=== PATIENT | male | born 1995 | race Hispanic/Latino ===

== ENCOUNTER 2021-04-15 14:16 | Emergency (ER) | payer OTHER, SELFPAY ==
[2021-04-15 15:11] VITALS: BP 143/86; PULSE 65; RESP 20; TEMP 36.5; O2SAT 98; BMI 37.6
--- NOTE | 2021-04-15 15:15 | PC.NURSE ---
denies loss of bowel or bladder.
--- NOTE | 2021-04-15 17:38 | ED.BACK ---
HPI - Back Pain/Injury General Chief Complaint: Back Pain/Injury Stated Complaint: threw his back out Time Seen by Provider: 04/15/21 17:37 Source: patient Limitations: no limitations History of Present Illness HPI Narrative: Otherwise healthy 26-year-old gentleman was walking into his gym last night around 7:00 p.m. and felt a slight twitch and muscle tightening in his low back. He describes no specific injury, no trauma he has no history of IV drug use or recent spinal procedures. He has never had similar symptoms. He complains of no fevers, cough, vomiting, diarrhea. He notes that he has not had difficulty with voiding or stooling. He is having difficulty walking purely because of pain but does not report muscle weakness. Related Data Previous Rx's Medication Instructions Recorded oxycodone-acetaminophen 1 tab PO Q6H PRN #14 tab 04/15/21 tizanidine 4 mg PO BEDTIME PRN #10 cap 04/15/21 Allergies Allergy/AdvReac Type Severity Reaction Status Date / Time No Known Drug Allergies Allergy Verified 04/15/21 18:37 Review of Systems Review of Systems Narrative: Remainder of complete review of systems is otherwise unremarkable except for that included in the HPI. Patient History Social History Smoking Status: Former smoker Smoking Status: Former smoker alcohol intake frequency: 0-2 drinks per day Substance Use Type: does not use Exam Narrative Exam Narrative: General: Alert appropriate in no acute distress Respiratory: Able to speak in full sentences, no obvious respiratory distress Skin: No obvious rashes, warm and dry. No skin changes over the area of tenderness midline L4-5 Neurologic: Grossly intact no obvious asymmetries or abnormalities. No perineal numbness. Reflexes are 3+ bilaterally at patellas. 2+ bilaterally ankle jerks. No lower extremity paresthesias Psych: appropriate insight and affect, cooperative Initial Vital Signs Initial Vital Signs: Vital Signs Temperature 97.7 F 04/15/21 15:11 Pulse Rate 65 04/15/21 15:11 Respiratory Rate 20 04/15/21 15:11 Blood Pressure 143/86 H 04/15/21 15:11 Pulse Oximetry 98 04/15/21 15:11 Course Orders Ordered: Discontinued Medications Ketorolac Tromethamine (Ketorolac 30 Mg/Ml Vial) 30 mg IM NOW ONE Stop: 04/15/21 17:50 Last Admin: 04/15/21 18:03 Dose: 30 mg Documented by: DELVIN Oxycodone/Acetaminophen (Oxycodone/Acetaminophen 5/325 Tablet) 1 tab PO NOW ONE Stop: 04/15/21 17:50 Last Admin: 04/15/21 18:02 Dose: 1 tab Documented by: DELVIN Oxycodone/Acetaminophen (Oxycodone/Apap 5/325 Prepack) 1 bottle MISC SEEINSTR ONE Stop: 04/15/21 17:54 Last Admin: 04/15/21 18:03 Dose: 1 bottle Documented by: DELVIN Vital Signs Vital signs: Vital Signs - 8 hr 04/15/21 15:11 04/15/21 18:19 Temperature 97.7 F Pulse Rate 65 58 L Respiratory Rate 20 Blood Pressure 143/86 H 136/89 Pulse Oximetry 98 99 MDM - Back Pain/Injury MDM Narrative Medical decision making narrative: 26-year-old gentleman with acute back pain consistent with lumbar strain. He has no red flags that would indicate epidural abscess, tumor, trauma or other concerns of with necessitate imaging at this time. He responded nicely to a shot of Toradol and an oral dose of Percocet. He is safe for home discharge Discharge Plan Departure Patient Disposition: Home Clinical Impression: Strain of lumbar region Qualifiers: Encounter type: initial encounter Qualified Code(s): S39.012A - Strain of muscle, fascia and tendon of lower back, initial encounter Instructions: DI for Low Back Pain Activity Restrictions/Additional Instructions: Thank you for coming in today You have fairly classic low back pain. There is no evidence of an epidural abscess, fractures, cauda equina syndrome or other severe threatening diagnoses. The pain is definitely going to be treatable. It is always worse in the 1st 2 days after your injury and then will get better. Using 400 mg of ibuprofen (2 [id number] pills) and 1 Tylenol every 6 hours can be very helpful in controlling pain. For severe pain 400 mg of ibuprofen and 1 Percocet. At night if you need additional help with muscle spasm you can add tizanidine, a muscle relaxer. I would recommend being off work completely for 2 days and then seeing how limited you are after that. Please talk to your primary care provider about a referral to physical therapy to prevent recurrent back pain issues If you have worsening pain by Friday, fevers, inability to actually walk or numbness (not just due to pain), inability to pee or develop new symptoms it would be appropriate to return to the ER for further evaluation Prescriptions: New tizanidine 4 mg capsule 4 mg PO BEDTIME PRN (Reason: muscle spasticity) Qty: 10 RF: 0 oxycodone-acetaminophen 5-325 mg tablet 1 tab PO Q6H PRN (Reason: pain) Qty: 14 RF: 0 Stand Alone Forms: Work Release Note
[2021-04-15] MEDS: OXYCODONE/ACETAMINOPHEN 5/325 TABLET 1 TAB PO (18:02)
[2021-04-15] MEDS: KETOROLAC 30 MG/ML VIAL IM (18:03)
[2021-04-15] MEDS: OXYCODONE/APAP 5/325 PREPACK 1 BOTTLE MISC (18:03)
[2021-04-15 18:19] VITALS: BP 136/89; PULSE 58; O2SAT 99
== END 2021-04-15 19:12 | disposition home or self-care (01) ==
PROVIDERS: Emergency Provider Emergency Medicine
DX: S39.012A Strain of muscle, fascia and tendon of lower back, initial encounter (principal)
CPT/HCPCS: 96372; 99283; J1885

== ENCOUNTER 2021-10-01 10:16 | Emergency (ER) | payer OTHER, SELFPAY ==
[2021-10-01 10:29] VITALS: PULSE 63; RESP 17; TEMP 36.4; O2SAT 99; BMI 37.6
--- NOTE | 2021-10-01 11:03 | DI.MRI.S_ITS ---
PROCEDURE: MR LUMBAR SPINE WO CON INDICATIONS: Low back pain, possible for cauda equina syndrome TECHNIQUE: Noncontrast sagittal T1 spin echo and T2 fast echo, sagittal STIR, axial T1 and T2 fast spin echo through the lumbar spine. In cases with scoliosis, additional coronal T2 fast spin echo may be performed. COMPARISON: None. FINDINGS: Image quality: Excellent. Alignment and Curvature: There is normal bony alignment. Bone Marrow: Marrow is of normal overall signal. No acute vertebral body compression fractures. Spinal Cord: Conus medullaris terminates at the L1 level. Visualized cord demonstrates normal signal and size. No evidence of cord or conus compression. Paraspinous Soft Tissues: No paravertebral masses. T12-L1: Normal appearance. L1-L2: Normal appearance. L2-L3: Normal appearance. L3-L4: Disc space narrowing and circumferential disc bulge present with hypertrophic facet joints resulting in effacement of the left lateral recess and moderate central stenosis. Mild left foraminal stenosis present. No right foraminal stenosis. L4-L5: Disc space narrowing and circumferential disc bulge is present as well as a superimposed central disc protrusion measuring 4 mm in thickness resulting in moderate central stenosis. Mild bilateral foraminal stenosis present. L5-S1: Disc space narrowing and circumferential disc bulge present with central high-intensity zone reflecting annular fissure or tear. No central stenosis. No right foraminal stenosis. Mild left foraminal stenosis. IMPRESSION: 1. No evidence of cord or conus compression. 2. Multilevel degenerative disc disease and arthropathy results in varying degrees of central and foraminal stenosis including moderate central stenosis and left lateral recess effacement at L3-4, and moderate central stenosis at L4-5. Approved by: Babar Colbert M.D. on 10/01/2021 at 13:50
[2021-10-01 12:46] LABS: Add Manual Diff / Slide Review NO; Basophils Absolute Auto 0 /uL (0-100); Basophils Percent Auto 0.4 % (0-2); Eosinophils Absolute Auto 100 /uL (0-450); Eosinophils Percent Auto 0.9 % (2-4); Hematocrit 50.8 % (41-53); Hemoglobin 17.3 g/dL (13.5-17.5); Lymphocytes Absolute Auto 2300 /uL (1100-4500); Lymphocytes Percent Auto 36.1 % (25-40); Mean Corpuscular HGB Conc 34.1 % (30-36); Mean Corpuscular Hemoglobin 30.4 PG (26-34); Mean Corpuscular Volume 89.4 fL (80-100); Monocytes Absolute Auto 500 /uL (0-900); Monocytes Percent Auto 7.3 % (3-14); Neutrophils Absolute Auto 3500 /uL (1500-7000); Neutrophils Percent Auto 55.3 % (50-75); Platelet Count 217 X10^3/uL (150-400); Red Blood Cell Count 5.68 X10^6/uL (4.5-5.9); White Blood Cell Count 6.4 X10^3/uL (4.5-11.0)
--- NOTE | 2021-10-01 12:50 | ED.BACK ---
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 Patient states that he 1st experienced lower back pain in April 2021 which brought him to the ED, which subsequently resolved. He does not recall any specific trauma or event that caused his original back pain. Patient's back pain recurred starting yesterday, pain starts in the right lower back, radiating down the back of his right leg all the way to the ankle. Patient states that he also experienced 30 minutes of numbness, tingling starting from his right side genital area down the front of his right thigh. Patient denies any perianal numbness, urinary hesitancy, urinary incontinence, stool incontinence. Patient denies any drug use, IVDU. Patient has not had any imaging other than x-rays done in April 2021. Patient was seen at the [facility], sent to the ED for further evaluation today. Patient denies fever, chills, chest pain, shortness of breath, cough, nausea, vomiting, abdominal pain, dysuria, lightheadedness, dizziness, syncope. Related Data Home Medications Medication Instructions Recorded Confirmed acetaminophen 325 mg capsule 650 mg PO Q6H PRN 10/01/21 10/01/21 (Tylenol) Allergies Allergy/AdvReac Type Severity Reaction Status Date / Time No Known Drug Allergies Allergy Verified 10/01/21 10:36 Review of Systems <Meaghan Coello PA-C - Last Filed: 10/01/21 16:01> Review of Systems ROS Unobtainable: All systems reviewed & are unremarkable except as noted in HPI and below Constitutional Constitutional: Denies chills, Denies fatigue, Denies fever(s), Denies frequent falls, Denies lethargy and Denies weakness Eyes Eyes: Denies change in vision, Denies eye discharge, Denies irritation and Denies loss of vision ENT Ears, Nose, Mouth, and Throat: Denies change in voice, Denies dizziness, Denies neck pain, Denies sore throat and Denies throat swelling Cardiovascular Cardiovascular: Denies chest pain, Denies irregular heart rhythm, Denies lightheadedness, Denies palpitations, Denies dyspnea, Denies dyspnea on exertion and Denies orthopnea Respiratory Respiratory: Denies cough, Denies dyspnea, Denies dyspnea on exertion and Denies wheezing Gastrointestinal Gastrointestinal: Denies abdominal pain, Denies change in bowel habits, Denies fecal incontinence, Denies diarrhea, Denies nausea and Denies vomiting Genitourinary Genitourinary: Denies hematuria, Denies difficulty urinating, Denies flank pain, Denies urinary hesitancy, Denies urinary incontinence and Denies urinary urgency Musculoskeletal Musculoskeletal: Reports back pain, Denies muscle weakness, Denies neck pain, Reports numbness, Reports radiating pain into limb (R leg) and Reports tingling Integumentary/Breasts Skin/Breast: Denies pruritus, Denies erythema, Denies rash and Denies wounds Neurologic Neurologic: Denies behavioral changes, Denies confusion, Denies dizziness, Denies frequent falls, Denies loss of vision, Reports numbness, Reports tingling and Denies weakness Psychiatric Psychiatric: Denies anxiety, Denies behavioral changes, Denies confusion, Denies depression, Denies homicidal ideation and Denies suicidal ideation Endocrine Endocrine: Denies fatigue, Denies flushing and Denies palpitations Hematologic/Lymphatic Hematologic/Lymphatic: Denies easy bruising Allergic/Immunologic Allergic/Immunologic: Denies urticaria, Denies throat swelling and Denies wheezing Patient History <Meaghan Coello PA-C - Last Filed: 10/01/21 16:01> Social History Smoking Status: Former smoker Smoking Status: Former smoker alcohol intake frequency: 0-2 drinks per day Substance Use Type: does not use Exam <Meaghan Coello PA-C - Last Filed: 10/01/21 16:01> Initial Vital Signs Initial Vital Signs: Vital Signs Temperature 97.5 F L 10/01/21 10:29 Pulse Rate 63 10/01/21 10:29 Respiratory Rate 17 10/01/21 10:29 Pulse Oximetry 99 10/01/21 10:29 Const General: cooperative and healthy appearing [facility] Head: normal to inspection Eyes General: appearance normal, both eyes and all related structures Neck Neck: normal visual inspection and No midline deformity Chest Chest: normal inspection of the chest Resp Effort & Inspection: normal respiratory effort Auscultation: clear to auscultation bilaterally Cardio Rate: regular rate Rhythm: regular rhythm GI Inspection: normal to inspection Rectal Exam: visual inspection normal and normal sphincter tone Back/Spine/Pelvis Back: normal to inspection, No back tenderness, No CVA tenderness and No ecchymosis Cervical Spine: No cervical spinal tenderness Thoracic/Lumbar Spine: thoracic and lumbar spine normal to inspection, thoraco-lumbar ROM normal, No thoracic spinal tenderness, No lumbar spinal tenderness and straight leg raise positive (R leg) Skin General: no rashes or lesions noted Neuro General: patient alert, patient awake and patient oriented x3 Cranial Nerves: CN's II-XI intact bilaterally Other: PERRLA. CN 1 through 12 intact bilaterally. Strength and sensation intact. Gait normal. Normal dorsiflexion and extension of bilateral big toes. Extrem General: normal to inspection <Dada Booker DO - Last Filed: 10/01/21 17:16> Initial Vital Signs Initial Vital Signs: Vital Signs Temperature 97.5 F L 10/01/21 10:29 Pulse Rate 63 10/01/21 10:29 Respiratory Rate 17 10/01/21 10:29 Pulse Oximetry 99 10/01/21 10:29 Course <Meaghan Coello PA-C - Last Filed: 10/01/21 16:01> Course Course Narrative: MRI with no evidence of spinal emergency such as cord compression, cauda equina. MRI does show bulging discs in the L4-L5 and L5-S1 regions, which are likely the cause of the patient's symptoms. Patient's pain improved with the medications. Patient neurologically intact on re-examine. Patient denies any numbness, tingling, weakness. Will discharge patient with ED return precautions and PCP follow-up, recommendation for physical therapy. Orders Ordered: ED Orders 10/01/21 11:03 MR lumbar spine wo con Stat 10/01/21 12:30 Basic Metabolic Panel Stat Complete Blood Count AUTO DIFF Stat Discontinued Medications Cyclobenzaprine HCl (Cyclobenzaprine 10 Mg Tablet) 10 mg PO NOW ONE Stop: 10/01/21 12:50 Last Admin: 10/01/21 13:25 Dose: 10 mg Documented by: ANSON Ketorolac Tromethamine (Ketorolac 30 Mg/Ml Vial) 15 mg IM NOW ONE Stop: 10/01/21 12:50 Last Admin: 10/01/21 13:25 Dose: 15 mg Documented by: ANSON Vital Signs Vital signs: Vital Signs - 8 hr 10/01/21 10:29 Temperature 97.5 F L Pulse Rate 63 Respiratory Rate 17 Pulse Oximetry 99 <Dada Booker DO - Last Filed: 10/01/21 17:16> Orders Ordered: ED Orders 10/01/21 11:03 MR lumbar spine wo con Stat 10/01/21 12:30 Basic Metabolic Panel Stat Complete Blood Count AUTO DIFF Stat Discontinued Medications Cyclobenzaprine HCl (Cyclobenzaprine 10 Mg Tablet) 10 mg PO NOW ONE Stop: 10/01/21 12:50 Last Admin: 10/01/21 13:25 Dose: 10 mg Documented by: ANSON Ketorolac Tromethamine (Ketorolac 30 Mg/Ml Vial) 15 mg IM NOW ONE Stop: 10/01/21 12:50 Last Admin: 10/01/21 13:25 Dose: 15 mg Documented by: ANSON Vital Signs Vital signs: Vital Signs - 8 hr 10/01/21 10:29 Temperature 97.5 F L Pulse Rate 63 Respiratory Rate 17 Pulse Oximetry 99 MDM - Back Pain/Injury <Meaghan Coello PA-C - Last Filed: 10/01/21 16:01> Medical Records Attestation: I reviewed the patient's medical records. Lab Data Attestation: I reviewed the patient's lab results. Lab results narrative: Labs within normal limits Result diagrams: 10/01/21 12:30 10/01/21 12:30 Labs: Lab Results 10/01/21 10/01/21 Range/Units 12:30 12:30 WBC 6.4 (4.5-11.0) X10^3/uL RBC 5.68 (4.5-5.9) X10^6/uL Hgb 17.3 (13.5-17.5) g/dL Hct 50.8 (41-53) % MCV 89.4 (80-100) fL MCH 30.4 (26-34) PG MCHC 34.1 (30-36) % RDW 14.0 (11.6-14.8) % Plt Count 217 (150-400) X10^3/uL Neut % (Auto) 55.3 (50-75) % Lymph % (Auto) 36.1 (25-40) % [place]cher % (Auto) 7.3 (3-14) % Eos % (Auto) 0.9 L (2-4) % Baso % (Auto) 0.4 (0-2) % Neut # (Auto) 3500 (2241-7830) /uL Lymph # (Auto) 2300 (8076-3164) /uL Letcher # (Auto) 500 (0-900) /uL Eos # (Auto) 100 (0-450) /uL Baso # (Auto) 0 (0-100) /uL Sodium 140 (137-145) mmol/L Potassium 4.2 (3.4-5.1) mmol/L Chloride 101 (98-107) mmol/L Carbon Dioxide 31 (22-32) mmol/L BUN 15 (9-20) mg/dL Creatinine 0.95 (0.66-1.25) mg/dL Estimated GFR > 60.0 (>60) mL/min BUN/Creatinine Ratio 15.8 (6-22) Glucose 99 (70-100) mg/dL Calcium 9.4 (8.4-10.2) mg/dL Urine Dip Bedside Urine Glucose Negative Bedside Urine Bilirubin - Negative Bedside Urine Ketone - Negative Urine Specific [place] 1.015 Bedside Urine Occult Blood - Negative Bedside Urine pH 6.5 Bedside Urine Protein - Negative Bedside Urine Urobilinogen - Negative Bedside Urine Nitrite - Negative Bedside Urine Leukocytes - Negative Esterase Imaging Data MRI L spine: Radiologist's Impression: PROCEDURE:? MR LUMBAR SPINE WO CON ? INDICATIONS:? Low back pain, possible for cauda equina syndrome ? TECHNIQUE:? Noncontrast sagittal T1 spin echo and T2 fast echo, sagittal STIR, axial T1 and T2 fast spin echo through the lumbar spine.? In cases with scoliosis, additional coronal T2 fast spin echo may be performed.? ? COMPARISON:? None. ? FINDINGS:? Image quality:? Excellent.? ? Alignment and Curvature:? There is normal bony alignment.? ? Bone Marrow:? Marrow is of normal overall signal.? No acute vertebral body compression fractures.? ? Spinal Cord:? Conus medullaris terminates at the L1 level.? Visualized cord demonstrates normal signal and size.? No evidence of cord or conus compression. ? Paraspinous Soft Tissues:? No paravertebral masses.? ? T12-L1:? Normal appearance.? ? L1-L2:? Normal appearance.? ? L2-L3:? Normal appearance.? ? L3-L4:? Disc space narrowing and circumferential disc bulge present with hypertrophic facet joints resulting in effacement of the left lateral recess and moderate central stenosis.? Mild left foraminal stenosis present.? No right foraminal stenosis. ? L4-L5:? Disc space narrowing and circumferential disc bulge is present as well as a superimposed central disc protrusion measuring 4 mm in thickness resulting in moderate central stenosis.? Mild bilateral foraminal stenosis present. ? L5-S1:? Disc space narrowing and circumferential disc bulge present with central high-intensity zone reflecting annular fissure or tear.? No central stenosis.? No right foraminal stenosis.? Mild left foraminal stenosis. ? ? IMPRESSION:? ? 1. No evidence of cord or conus compression. ? 2. Multilevel degenerative disc disease and arthropathy results in varying degrees of central and foraminal stenosis including moderate central stenosis and left lateral recess effacement at L3-4, and moderate central stenosis at L4-5.? Approved by: Babar Colbert M.D. on 10/01/2021 at 13:50? 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 Concern for cauda equina versus spinal cord compression versus disc herniation versus muscle strain. Will order MRI lumbar spine, UA, labs. Treat pain with Toradol and Flexeril. Will reassess. <Dada Booker, - Last Filed: 10/01/21 17:16> Lab Data Labs: Lab Results 10/01/21 10/01/21 Range/Units 12:30 12:30 WBC 6.4 (4.5-11.0) X10^3/uL RBC 5.68 (4.5-5.9) X10^6/uL Hgb 17.3 (13.5-17.5) g/dL Hct 50.8 (41-53) % MCV 89.4 (80-100) fL MCH 30.4 (26-34) PG MCHC 34.1 (30-36) % RDW 14.0 (11.6-14.8) % Plt Count 217 (150-400) X10^3/uL Neut % (Auto) 55.3 (50-75) % Lymph % (Auto) 36.1 (25-40) % Letcher % (Auto) 7.3 (3-14) % Eos % (Auto) 0.9 L (2-4) % Baso % (Auto) 0.4 (0-2) % Neut # (Auto) 3500 (9929-4504) /uL Lymph # (Auto) 2300 (3750-1934) /uL Letcher # (Auto) 500 (0-900) /uL Eos # (Auto) 100 (0-450) /uL Baso # (Auto) 0 (0-100) /uL Sodium 140 (137-145) mmol/L Potassium 4.2 (3.4-5.1) mmol/L Chloride 101 (98-107) mmol/L Carbon Dioxide 31 (22-32) mmol/L BUN 15 (9-20) mg/dL Creatinine 0.95 (0.66-1.25) mg/dL Estimated GFR > 60.0 (>60) mL/min BUN/Creatinine Ratio 15.8 (6-22) Glucose 99 (70-100) mg/dL Calcium 9.4 (8.4-10.2) mg/dL Urine Dip Bedside Urine Glucose Negative Bedside Urine Bilirubin - Negative Bedside Urine Ketone - Negative Urine Specific [place] 1.015 Bedside Urine Occult Blood - Negative Bedside Urine pH 6.5 Bedside Urine Protein - Negative Bedside Urine Urobilinogen - Negative Bedside Urine Nitrite - Negative Bedside Urine Leukocytes - Negative Esterase Discharge Plan Departure Patient Disposition: Home Clinical Impression: Acute low back pain Instructions: DI for Back Pain With Sciatica Activity Restrictions/Additional Instructions: You were evaluated in the ED today for lower back pain. Your MRI did not show any evidence of a spinal emergency such as cord compression or cauda equina. The MRI did show bulging discs in the L4-L5 and L5-S1 regions, which is likely the cause of your symptoms. You may take ibuprofen 800 mg every 8 hours for the inflammation and pain. Please take the ibuprofen with food so it does not upset your stomach. Please follow-up with your primary care provider. You may seek physical therapy. Return to the ED if you notice worsening back pain, you feel genital numbness, Petti rectal numbness, urinary incontinence, school stool incontinence, tingling, weakness, fever, chills. Prescriptions: No Action acetaminophen [Tylenol] 325 mg Capsule 650 mg PO Q6H PRN (Reason: Mild Pain (Scale Score 1-4)) 0RF Referrals: Nato Herrera PA-C [Primary Care Provider] - <Dada Booker DO - Last Filed: 10/01/21 17:16> Cosign ED Attending Cosignature Attestation: Dr Booker Co-Sign Statement: I was available for consultation during this patient's emergency department visit. This chart is signed by myself for administrative purposes only. I did not have direct contact with this patient during this visit. They were seen independently by the APC.
[2021-10-01 12:59] LABS: BUN Creatinine Ratio 15.8 (6-22); Blood Urea Nitrogen 15 mg/dL (9-20); Calcium 9.4 mg/dL (8.4-10.2); Carbon Dioxide 31 mmol/L (22-32); Chloride 101 mmol/L (98-107); Estimated Glomerular Filt Rate > 60.0 mL/min (>60); Glucose 99 mg/dL (70-100); HEMOLYSIS 29 (0-50); Potassium 4.2 mmol/L (3.4-5.1); Sodium 140 mmol/L (137-145)
[2021-10-01] MEDS: KETOROLAC 30 MG/ML VIAL 15 MG IM (13:25)
[2021-10-01] MEDS: CYCLOBENZAPRINE 10 MG TABLET PO (13:25)
== END 2021-10-01 15:20 | disposition home or self-care (01) ==
PROVIDERS: Emergency Medicine; Emergency Provider Student in an Organized Health Care Education/Training Program; PCP Physician Assistant
DX: M54.41 Lumbago with sciatica, right side (principal)
CPT/HCPCS: 36415; 72148; 80048; 81003; 85025; 96372; 99284; J1885